=== PATIENT | male | born 1995 | race Caucasian/White ===

== ENCOUNTER 2022-02-12 21:33 | Emergency (ER) | payer BC ==
[~2022-02-12] VITALS: Ht 167.6 cm; Wt 113.0 kg
[2022-02-12 22:31] VITALS: BP 117/74
== END 2022-02-12 22:50 | disposition left against medical advice (07) ==
LOC: EDBD 21:33 → ER 21:39
DX: R07.89 Other chest pain (principal); F41.9 Anxiety disorder, unspecified; F12.10 Cannabis abuse, uncomplicated; Z53.21 Procedure and treatment not carried out due to patient leaving prior to being seen by health care provider
CPT/HCPCS: 93005